=== PATIENT | male | born 1940 | race Caucasian/White ===

== ENCOUNTER 2019-07-24 09:18 | Emergency (ER) | payer MEDICARE, OTHER ==
[~2019-07-24] VITALS: Ht 170.1 cm; Wt 97.2 kg
--- NOTE | 2019-07-24 09:48 | ED General ---
General Chief Complaint: - Urinary Stated Complaint: HEMATURIA Nursing Triage Note: Pt arrived via POV and ambulatory to ED with c/o blood in urine which just started this morning. Pt denies pain or any other problem. Nursing Sepsis Screen: No Definite Risk Source of Information: Patient Exam Limitations: No Limitations History of Present Illness Date Seen by Provider: July 24, 2019 Time Seen by Provider: 09:38 Initial Comments Presents w onset of blood in his urine this morning. No previous Hx of similar episodes. Denies difficulty w urination. Denies back, flank or abdominal pain. Denies fever, chills or recent illness. Allergies and Home Medications Patient Home Medication List Home Medication List Reviewed: Yes Review of Systems Review of Systems Constitutional: see HPI; No chills, No fever, No malaise Respiratory: No cough, No short of breath Cardiovascular: No chest pain, No palpitations Gastrointestinal: No abdominal pain, No loss of appetite, No nausea, No vomiting Genitourinary: see HPI; No decreased output, No dysuria, No frequency; hematuria; No hesitancy, No incontinence; nocturia; No pain Musculoskeletal: No back pain, No neck pain Past Aoktesh-Ajvgdz-Pvnjsb Hx Past Med/Social Hx: Reviewed Nursing Past Med/Soc Hx Patient Social History Alcohol Use: Denies Use Recreational Drug Use: No Smoking Status: Former Smoker Type Used: Cigarettes 2nd Hand Smoke Exposure: No Recent Foreign Travel: No Contact w/Someone Who Travel: No Recent Infectious Disease Expo: No Recent Hopitalizations: No Physical Abuse: No Sexual Abuse: No Mistreated: No Fear: No Seasonal Allergies Seasonal Allergies: No Past Medical History Surgeries: Yes (PACEMAKER, LEFT LEG) Respiratory: No Cardiac: Yes Hypertension Neurological: No Genitourinary: No Gastrointestinal: No Musculoskeletal: Yes Gout Endocrine: No HEENT: No Cancer: No Psychosocial: No Blood Disorders: No Physical Exam Vital Signs Vital Signs - First Documented 07/24/19 09:27 Temp 36.1 Pulse 72 Resp 18 B/P (MAP) 151/100 (117) Pulse Ox 97 Capillary Refill : Less Than 3 Seconds Height, Weight, BMI Height: '" Weight: lbs. oz. kg; 33.00 BMI Method: General Appearance: No Apparent Distress, WD/WN Respiratory: Chest Non Tender, Lungs Clear Cardiovascular: Regular Rate, Rhythm, No Edema Gastrointestinal: Non Tender, Soft; No Distended, No Guarding, No Mass Back: No CVA Tenderness, No Vertebral Tenderness Progress/Results/Core Measures Suspected Sepsis Recent Fever Within 48 Hours: No Infection Criteria Present: None New/Unexplained Altered Menta: No Sepsis Screen: No Definite Risk SIRS Temperature: Pulse: 72 Respiratory Rate: 18 Blood Pressure 151 /100 Mean: 117 Results/Orders Lab Results Laboratory Tests Test 07/24/19 09:30 Range/Units Urine Color RED H Urine Clarity CLOUDY H Urine pH 5.5 5-9 Urine Specific [place] 1.025 H 1.016-1.022 Urine Protein 3+ H NEGATIVE Urine Glucose (UA) 3+ H NEGATIVE Urine Ketones NEGATIVE NEGATIVE Urine Nitrite NEGATIVE NEGATIVE Urine Bilirubin NEGATIVE NEGATIVE Urine Urobilinogen 0.2 < = 1.0 MG/DL Urine Leukocyte Esterase 1+ H NEGATIVE Urine RBC (Auto) 3+ H NEGATIVE Urine RBC TNTC H /HPF Urine WBC 50-100 H /HPF Urine Squamous Epithelial Cells RARE /HPF Urine Crystals NONE /LPF Urine Bacteria TRACE /HPF Urine Casts NONE /LPF Urine Mucus NEGATIVE /LPF Urine Culture Indicated YES My Orders Orders - MARY GUILLEN DO Urinalysis (07/24/19 09:22) Urine Culture (07/24/19 09:30) Vital Signs/I&O 07/24/19 09:27 Temp 36.1 Pulse 72 Resp 18 B/P (MAP) 151/100 (117) Pulse Ox 97 Capillary Refill : Less Than 3 Seconds Blood Pressure Mean: 117 Departure Impression Primary Impression: Urinary tract infection Qualified Codes: N30.01 - Acute cystitis with hematuria Disposition: HOME, SELF-CARE Condition: Stable Departure-Patient Inst. Decision time for Depature: 09:47 Referrals: MARYLU ALTAMIRANO MD (PCP/Family) Primary Care Physician Patient Instructions: Urinary Tract Infection, Adult (DC) Scripts Ciprofloxacin HCl (Ciprofloxacin HCl) 500 Mg Tablet 500 MG PO BID, #14 TAB Prov: MARY GUILLEN DO 07/24/19 MARY GUILLEN DO July 24, 2019 09:48
[2019-07-24 09:53] LABS: BILIRUBIN,URINE NEGATIVE (NEGATIVE); CLARITY,URINE CLOUDY; COLOR,URINE RED; GLUCOSE, URINE (UA) 3+ (NEGATIVE); KETONES,URINE NEGATIVE (NEGATIVE); LEUKOCYTE ESTERASE ,URINE 1+ (NEGATIVE); NITRITE,URINE NEGATIVE (NEGATIVE); PH,URINE 5.5 (5-9); PROTEIN,URINE 3+ (NEGATIVE); RBC,URINE TNTC /HPF; WBC,URINE 50-100 /HPF
[2019-07-24 09:54] LABS: BACTERIA,URINE TRACE /HPF; SQUAMOUS EPITHELIAL CELL,UR RARE /HPF
[2019-07-24] MEDS ORDERED: CIPR500T4 PO (09:59)
[2019-07-24 10:03] VITALS: BP 151/100
--- OUTSIDE RECORDS SUMMARY | 2019-07-24 10:06 | XMS REPORT | Continuity of Care Document ---
Author Organization Unknown Address Unknown Phone Unavailable Allergies There is no data. Medications There is no data. Problems There is no data. Procedures There is no data. Results Test Result Range LIPID PANEL - 08/18/18 08:22 CHOLESTEROL, TOTAL 185 mg/dL <200 HDL CHOLESTEROL 49 mg/dL >40 TRIGLYCERIDES 241 mg/dL <150 LDL-CHOLESTEROL 99 mg/dL (calc) NRG CHOL/HDLC RATIO 3.8 (calc) <5.0 NON HDL CHOLESTEROL 136 mg/dL (calc) <13 0 CMP - 08/18/18 08:22 GLUCOSE 143 mg/dL 65-99 UREA NITROGEN (BUN) 40 mg/dL 7-25 CREATININE 1.50 mg/dL 0.70-1.11 eGFR NON-AFR. FAROESE 43 mL/min/1.73m2 > OR = 60 eGFR 50 mL/min/1.73m2 > OR = 60 BUN/CREATININE RATIO 27 (calc) 6-22 SODIUM 139 mmol/L 135-146 POTASSIUM 4.6 mmol/L 3.5-5.3 CHLORIDE 111 mmol/L 98-110 CARBON DIOXIDE 18 mmol/L 20-32 CALCIUM 10.0 mg/dL 8.6-10.3 PROTEIN, TOTAL 7.0 g/dL 6.1-8.1 ALBUMIN 4.3 g/dL 3.6-5.1 GLOBULIN 2.7 g/dL (calc) 1.9-3.7 ALBUMIN/GLOBULIN RATIO 1.6 (calc) 1.0-2. 5 BILIRUBIN, TOTAL 0.4 mg/dL 0.2-1.2 ALKALINE PHOSPHATASE 69 U/L 40-115 AST 14 U/L 10-35 ALT 15 U/L 9-46 CBC - 08/18/18 08:22 WHITE BLOOD CELL COUNT 9.1 Thousand/uL 3 .8-10.8 RED BLOOD CELL COUNT 5.40 Million/uL 4.2 0-5.80 HEMOGLOBIN 15.9 g/dL 13.2-17.1 HEMATOCRIT 47.3 % 38.5-50.0 MCV 87.6 fL 80.0-100.0 MCH 29.4 pg 27.0-33.0 MCHC 33.6 g/dL 32.0-36.0 RDW 13.5 % 11.0-15.0 PLATELET COUNT 297 Thousand/uL 140-400 MPV 9.6 fL 7.5-12.5 ABSOLUTE NEUTROPHILS 5915 cells/uL 1500- 7800 ABSOLUTE LYMPHOCYTES 1856 cells/uL 850-3 900 ABSOLUTE MONOCYTES 810 cells/uL 200-950 ABSOLUTE EOSINOPHILS 446 cells/uL 15-500 ABSOLUTE BASOPHILS 73 cells/uL 0-200 NEUTROPHILS 65 % NRG LYMPHOCYTES 20.4 % NRG MONOCYTES 8.9 % NRG EOSINOPHILS 4.9 % NRG BASOPHILS 0.8 % NRG A1C - 08/18/18 08:22 HEMOGLOBIN A1c 7.8 % of total Hgb <5.7 LIPID PANEL - 12/19/18 09:06 CHOLESTEROL, TOTAL 172 mg/dL <200 HDL CHOLESTEROL 49 mg/dL >40 TRIGLYCERIDES 242 mg/dL <150 LDL-CHOLESTEROL 89 mg/dL (calc) NRG CHOL/HDLC RATIO 3.5 (calc) <5.0 NON HDL CHOLESTEROL 123 mg/dL (calc) <13 0 CMP - 12/19/18 09:06 GLUCOSE 144 mg/dL 65-99 UREA NITROGEN (BUN) 39 mg/dL 7-25 CREATININE 1.61 mg/dL 0.70-1.11 eGFR NON-AFR. FAROESE 40 mL/min/1.73m2 > OR = 60 eGFR 46 mL/min/1.73m2 > OR = 60 BUN/CREATININE RATIO 24 (calc) 6-22 SODIUM 139 mmol/L 135-146 POTASSIUM 4.5 mmol/L 3.5-5.3 CHLORIDE 107 mmol/L 98-110 CARBON DIOXIDE 21 mmol/L 20-32 CALCIUM 9.7 mg/dL 8.6-10.3 PROTEIN, TOTAL 6.7 g/dL 6.1-8.1 ALBUMIN 4.1 g/dL 3.6-5.1 GLOBULIN 2.6 g/dL (calc) 1.9-3.7 ALBUMIN/GLOBULIN RATIO 1.6 (calc) 1.0-2. 5 BILIRUBIN, TOTAL 0.5 mg/dL 0.2-1.2 ALKALINE PHOSPHATASE 77 U/L 40-115 AST 13 U/L 10-35 ALT 16 U/L 9-46 CBC - 12/19/18 09:06 WHITE BLOOD CELL COUNT 10.8 Thousand/uL 3.8-10.8 RED BLOOD CELL COUNT 5.27 Million/uL 4.2 0-5.80 HEMOGLOBIN 15.6 g/dL 13.2-17.1 HEMATOCRIT 46.9 % 38.5-50.0 MCV 89.0 fL 80.0-100.0 MCH 29.6 pg 27.0-33.0 MCHC 33.3 g/dL 32.0-36.0 RDW 13.7 % 11.0-15.0 PLATELET COUNT 310 Thousand/uL 140-400 MPV 9.3 fL 7.5-12.5 ABSOLUTE NEUTROPHILS 6977 cells/uL 1500- 7800 ABSOLUTE LYMPHOCYTES 2128 cells/uL 850-3 900 ABSOLUTE MONOCYTES 1210 cells/uL 200-950 ABSOLUTE EOSINOPHILS 410 cells/uL 15-500 ABSOLUTE BASOPHILS 76 cells/uL 0-200 NEUTROPHILS 64.6 % NRG LYMPHOCYTES 19.7 % NRG MONOCYTES 11.2 % NRG EOSINOPHILS 3.8 % NRG BASOPHILS 0.7 % NRG A1C - 12/19/18 09:06 HEMOGLOBIN A1c 7.6 % of total Hgb <5.7 MICROALBUMIN/CREATININE RATIO, URINE - 0 04/21/19 09:08 CREATININE, RANDOM URINE 92 mg/dL 20-32 0 MICROALBUMIN 63.8 mg/dL See Note: MICROALBUMIN/CREATININE RATIO, RANDOM URINE 693 mcg/mg creat <30 Complete urinalysis with reflex to cultu re - 07/24/19 09:30 Urine color determination RED NRG Urine clarity determination CLOUDY NR G Urine pH measurement by test strip 5.5 5-9 Specific gravity of urine by test strip 1.025 1.016-1.022 Urine protein assay by test strip, semi-quantitative 3+ NEGATIVE Urine glucose detection by automated test strip 3+ NEGATIVE Erythrocytes detection in urine sediment by light micr oscopy 3+ NEGATIVE Urine ketones detection by automated test strip NE GATIVE NEGATIVE Urine nitrite detection by test strip NEGATIVE NEGATIVE Urine total bilirubin detection by test strip NEGA TIVE NEGATIVE Urine urobilinogen measurement by automated test strip (mass/volume) 0.2 mg/dL < = 1.0 Urine leukocyte esterase detection by dipstick 1+ NEGATIVE Automated urine sediment erythrocyte cou nt by microscopy (number/high power field) TNTC NRG Automated urine sediment leukocyte count by microscopy (number/high power field) [HPF] NRG Bacteria detection in urine sediment by light microsco py TRACE NRG Squamous epithelial cells detection in u rine sediment by light microscopy RARE NRG Crystals detection in urine sediment by light microsco py NONE NRG Casts detection in urine sediment by light microscopy NONE NRG Mucus detection in urine sediment by light microscopy NEGATIVE NRG Complete urinalysis with reflex to culture YES NRG Encounters ACCT No. Visit Date/Time Discharge Status Pt. Type Provider Facility Loc./Unit Complaint [id number] 04/21/2019 07:45:00 04/21/2019 23:59: 59 [facility] Outpatient MARYLU ALTAMIRANO [facility] [id number] 04/21/2019 07:45:00 Document Registration [id number] 12/19/2018 08:00:00 Document Registration [id number] 08/18/2018 08:00:00 Document Registration [id number] 07/24/2019 09:54:00 Document Registration
== END 2019-07-24 10:03 | disposition home or self-care (01) ==
LOC: ER FS 09:21
DX: N39.0 Urinary tract infection, site not specified (principal); Z87.891 Personal history of nicotine dependence; Z95.0 Presence of cardiac pacemaker
CPT/HCPCS: 81000; 87077; 87088; 87186; 99282

== ENCOUNTER 2019-07-25 14:35 | Emergency (ER) | payer MEDICARE ==
[~2019-07-25] VITALS: Ht 170 cm; Wt 96.9 kg
[~2019-07-25 14:35] MED LIST: CIPR500T4 PO
--- NOTE | 2019-07-25 14:59 | ED GI ---
General Chief Complaint: Rect Problems Stated Complaint: BLOODY STOOL Nursing Triage Note: States he was here in ED yesterday due to blood in urine and was put on an antibiotic. Is here today because he had a small amount of blood in stool. States it was a red streak on stool and when he wiped. Denies shortness of breath, dizziness, or syncope. States he had a GI bleed 8 years ago and had a colonoscopy. Sepsis Screen: No Definite Risk Source of Information: Patient, Old Records, RN/MD, RN Notes Reviewed Exam Limitations: No Limitations History of Present Illness Date Seen by Provider: July 25, 2019 Time Seen by Provider: 14:45 Initial Comments This patient is an 79-year-old male presents to the emergency department with complaint of what he believes was bright red blood when having a bowel movement. Patient states it was just a drop or 2. Patient states that he thought he was constipated and was pushing pretty hard and got very little stool out the nose blood. Patient was seen in the emergency department yesterday with complaint of blood in his urine. Patient states that blood is resolved patient is started on ciprofloxacin yesterday by ER physician. Patient does not take any blood thinners. Patient believes disease had a GI bleed in the past chronically 8 years ago but a negative colonoscopy. Patient does have a large prostate and takes medication for the same. Patient appears to be stable no acute distress blood pressure and vital signs are stable. We'll do medical evaluation treatment is needed Timing/Duration: 1/2 Hour Severity/Quality: Mild Activities at Onset: None Modifying Factors: Worsens With Defecating Allergies and Home Medications Allergies Coded Allergies: No Known Drug Allergies (Unverified , 07/25/19) Home Medications Ciprofloxacin HCl 500 Mg Tablet, 500 MG PO BID Prescribed by: MARY GUILLEN on 07/24/19 [id number] Patient Home Medication List Home Medication List Reviewed: Yes Review of Systems Review of Systems Constitutional: No no symptoms reported; see HPI; No chills, No diaphoresis, No dizziness, No fever, No malaise, No weakness, No weight gain, No weight loss, No other EENTM: No No Symptoms Reported, No See HPI, No Blurred Vision, No Double Vision, No Eye Pain, No Eye Tearing, No Ear Drainage, No Ear Pain, No Mouth Pain, No Mouth Swelling, No Nose Congestion, No Nose Pain, No Throat Pain, No Throat Swelling, No Other Respiratory: Denies No Symptoms Reported, Denies See HPI, Denies Cough, Denies Orthopnea, Denies Shortness of Air, Denies SOA With Exertion, Denies SOA at R est, Denies Stridor, Denies Wheezing, Denies Other Cardiovascular: Denies No Symptoms Reported, Denies See HPI, Denies Chest Pain, Denies Edema, Denies Irregular Heart Rate, Denies Lightheadedness, Denies Palpitations, Denies Syncope, Denies Other Gastrointestinal: Denies No Symptoms Reported, Denies See HPI, Denies Abdomen Distended, Denies Abdominal Pain, Denies Blood Streaked Stools, Denies Constipated, Denies Diarrhea, Denies Difficulty Swallowing, Denies Nausea, Denies Poor Appetite, Denies Poor Fluid Intake, Denies Rectal Bleeding, Denies Vomiting, Denies Other Genitourinary: Denies No Symptoms Reported, Denies See HPI, Denies Burning, Denies Discharge, Denies Drainage, Denies Frequency, Denies Flank Pain, Denies Hematuria, Denies Incontinence, Denies Pain, Denies Urgency, Denies Other Musculoskeletal: No no symptoms reported, No see HPI, No back pain, No gout, No joint pain, No joint swelling, No muscle pain, No muscle stiffness, No muscle cramps, No muscle twitching, No muscle weakness, No neck pain, No other Skin: No no symptoms reported, No see HPI, No change in color, No change in hair/nails, No dryness, No hx of skin cancer, No lesions, No lumps, No pruritus, No rash, No other Psychiatric/Neurological: Denies No Symptoms Reported, Denies See HPI, Denies Anxiety, Denies Depressed, Denies Emotional Problems, Denies Headache, Denies Numbness, Denies Paresthesia, Denies Pre-Existing Deficit, Denies Seizure, Denies Tingling, Denies Tremors, Denies Weakness, Denies Other Endocrine: Denies No Symptoms Reported, Denies See HPI, Denies Excessive Sweating, Denies Flushing, Denies Intolerance to Cold, Denies Intolerance to Heat, Denies Increased Hunger, Denies Increased Thrist, Denies Increased Urine, Denies Unexplained Weight Gain, Denies Unexplaned Weight Loss, Denies Other All Other Systems Reviewed Negative Unless Noted: Yes Past Dnsopkm-Ukttmn-Lutbgc Hx Patient Social History Type Used: Cigarettes 2nd Hand Smoke Exposure: No Recent Foreign Travel: No Contact w/Someone Who Travel: No Recent Infectious Disease Expo: No Recent Hopitalizations: No Seasonal Allergies Seasonal Allergies: No Past Medical History Surgeries: Yes (PACEMAKER, LEFT LEG) Respiratory: No Cardiac: Yes Hypertension Neurological: No Genitourinary: No Gastrointestinal: No Musculoskeletal: Yes Gout Endocrine: No HEENT: No Cancer: No Psychosocial: No Blood Disorders: No Physical Exam Vital Signs Vital Signs - First Documented 07/25/19 14:43 Temp 36.8 Pulse 90 Resp 16 B/P (MAP) 124/82 (96) Pulse Ox 95 Capillary Refill : Less Than 3 Seconds Height/Weight/BMI Height: '" Weight: lbs. oz. kg; 33.00 BMI Method: General Appearance: WD/WN, no apparent distress HEENT: PERRL/EOMI, normal ENT inspection, TMs normal, pharynx normal Neck: non-tender, full range of motion, supple, normal inspection Respiratory: chest non-tender, lungs clear, normal breath sounds, no respiratory distress, no accessory muscle use Cardiovascular: normal peripheral pulses, regular rate, rhythm, no edema, no gallop, no JVD, no murmur Gastrointestinal: normal bowel sounds, non tender, soft, no organomegaly, no pulsatile mass Rectal: normal exam, normal rectal tone, hemorrhoids, other (enlarged firm prostate) Genital/Rectal: normal rectal exam Progress/Results/Core Measures Results/Orders Lab Results Laboratory Tests Test 07/25/19 14:58 07/25/19 16:37 Range/Units White Blood Count 9.5 4.3-11.0 10^3/uL Red Blood Count 5.01 4.35-5.85 10^6/uL Hemoglobin 15.1 13.3-17.7 G/DL Hematocrit 43 40-54 % Mean Corpuscular Volume 85 80-99 FL Mean Corpuscular Hemoglobin 30 25-34 PG Mean Corpuscular Hemoglobin Concent 36 32-36 G/DL Red Cell Distribution Width 13.3 10.0-14.5 % Platelet Count 276 130-400 10^3/uL Mean Platelet Volume 9.6 7.4-10.4 FL Neutrophils (%) (Auto) 70 42-75 % Lymphocytes (%) (Auto) 13 12-44 % Monocytes (%) (Auto) 13 H 0-12 % Eosinophils (%) (Auto) 2 0-10 % Basophils (%) (Auto) 1 0-10 % Neutrophils # (Auto) 6.7 1.8-7.8 X 10^3 Lymphocytes # (Auto) 1.3 1.0-4.0 X 10^3 Monocytes # (Auto) 1.3 H 0.0-1.0 X 10^3 Eosinophils # (Auto) 0.2 0.0-0.3 10^3/uL Basophils # (Auto) 0.1 0.0-0.1 10^3/uL Prothrombin Time 13.3 12.2-14.7 SEC INR Comment 1.0 0.8-1.4 Sodium Level 130 L 135-145 MMOL/L Potassium Level 4.7 3.6-5.0 MMOL/L Chloride Level 95 L 98-107 MMOL/L Carbon Dioxide Level 19 L 21-32 MMOL/L Anion Gap 16 H 5-14 MMOL/L Blood Urea Nitrogen 40 H 7-18 MG/DL Creatinine 1.96 H 0.60-1.30 MG/DL Estimat Glomerular Filtration Rate 33 BUN/Creatinine Ratio 20 Glucose Level 415 *H 70-105 MG/DL Calcium Level 9.2 8.5-10.1 MG/DL Corrected Calcium 9.4 8.5-10.1 MG/DL Total Bilirubin 0.3 0.1-1.0 MG/DL Aspartate Amino Transf (AST/SGOT) 16 5-34 U/L Alanine Aminotransferase (ALT/SGPT) 18 0-55 U/L Alkaline Phosphatase 91 40-136 U/L Total Protein 6.7 6.4-8.2 GM/DL Albumin 3.8 3.2-4.5 GM/DL Glucometer 324 H 70-110 MG/DL My Orders Orders - MARII GORDON MD Comprehensive Metabolic Panel (07/25/19 14:53) Cbc With Automated Diff (07/25/19 14:53) Occult Blood Stool (07/25/19 14:53) Protime With Inr (07/25/19 14:53) Ns Iv 500 Ml (Sodium Chloride 0.9%) (07/25/19 15:36) Insulin (Regular) Human (Humulin R (Per (07/25/19 15:45) Medications Given in ED Current Medications Medications Dose Ordered Sig/[place] Route Start Time Stop Time Status Last Admin Dose Admin Insulin Human Regular 4 unit ONCE ONCE SC 07/25/19 15:45 07/25/19 15:46 DC 07/25/19 15:45 4 UNIT Vital Signs/I&O 07/25/19 14:43 Temp 36.8 Pulse 90 Resp 16 B/P (MAP) 124/82 (96) Pulse Ox 95 Blood Pressure Mean: 96 Progress Progress Note : Time: 16:49 Progress Note Negative evaluation for any acute GI bleeding. Patient appears to have questionable anal fissure to the rectal area on exam. Very trace positive blood on guaiac "blood evaluation. But no gross blood. Patient also had hemorrhoid. Patient states he was having a hard time having a stool this morning. Patient also has hyperglycemia and has long history of diabetes and takes oral medications for same including Januvia. Patient was given little insulin the did bring his glucose down. He continues come down. I did discuss living with patient about further evaluation. Patient is instructed to follow up with his PCP in 2 days for further evaluation. Patient is to continue his antibiotics that he was written in the emergency department yesterday during his evaluation. Continue all home medications. Patient is use MiraLAX [id number] and stool. Have a high-fiber diet. Patient be discharged home. Patient states understanding Departure Impression Primary Impression: Hematochezia Additional Impressions: History of BPH Anal fissure Hemorrhoid Hyperglycemia Disposition: 01 HOME, SELF-CARE Condition: Stable Departure-Patient Inst. Decision time for Depature: 16:51 Referrals: MARYLU ALTAMIRANO MD (PCP/Family) Primary Care Physician Patient Instructions: Hemorrhoids (DC), Anal Fissure (DC), Diabetes and Diet, Blood Glucose Monitoring Add. Discharge Instructions: Encourage by mouth fluids. Stool softeners [id number] as instructed. Continue all home medications. Follow up with PCP in 2 days for further evalu ation treatment. All discharge instructions reviewed with patient and/or family. Voiced understanding. MARII GORDON MD July 25, 2019 14:59
--- OUTSIDE RECORDS SUMMARY | 2019-07-25 15:02 | XMS REPORT | Continuity of Care Document ---
[...] 7-25 CREATININE 1.50 mg/dL 0.70-1.11 eGFR NON-AFR. [place] 43 mL/min/1.73m2 > OR = 60 eGFR [...] 7-25 CREATININE 1.61 mg/dL 0.70-1.11 eGFR NON-AFR. [place] 40 mL/min/1.73m2 > OR = 60 eGFR [...] urinalysis with reflex to culture YES NRG Bacterial urine culture - 07/24/19 09:30 Bacterial urine culture [id number] NRG COLONY COUNT 50,000 CFU/ML NRG Encounters ACCT No. Visit Date/Time Discharge Status Pt. Type Provider Facility Loc./Unit Complaint [id number] 04/21/2019 07:45:00 04/21/2019 23:59: 59 [facility] Outpatient MARYLU ALTAMIRANO [facility] [id number] 04/21/2019 07:45:00 Document Registration [id number] 12/19/2018 08:00:00 Document Registration [id number] 08/18/2018 08:00:00 Document Registration [id number] 07/24/2019 09:21:00 020 10:03:00 DIS Emergency MRAY GUILLEN DO Via [facility] ER FS HEMATURIA
[2019-07-25 15:13] LABS: HEMATOCRIT 43 % (40-54); HEMOGLOBIN 15.1 G/DL (13.3-17.7); MEAN CORPUSCULAR HEMOGLOBIN 30 PG (25-34); MEAN CORPUSCULAR HGB CONC 36 G/DL (32-36); MEAN CORPUSCULAR VOLUME 85 FL (80-99); PLATELET COUNT 276 10^3/uL (130-400); RED CELL DISTRIBUTION WIDTH 13.3 % (10.0-14.5); WHITE BLOOD COUNT 9.5 10^3/uL (4.3-11.0)
[2019-07-25 15:14] LABS: BASOPHILS # (AUTO) 0.1 10^3/uL (0.0-0.1); BASOPHILS % (AUTO) 1 % (0-10); EOSINOPHILS # (AUTO) 0.2 10^3/uL (0.0-0.3); EOSINOPHILS % (AUTO) 2 % (0-10); LYMPHOCYTES # (AUTO) 1.3 X 10^3 (1.0-4.0); LYMPHOCYTES % (AUTO) 13 % (12-44); MEAN PLATELET VOLUME 9.6 FL (7.4-10.4); MONOCYTES # (AUTO) 1.3 X 10^3 (0.0-1.0); MONOCYTES % (AUTO) 13 % (0-12); NEUTROPHILS # (AUTO) 6.7 X 10^3 (1.8-7.8); NEUTROPHILS % (AUTO) 70 % (42-75)
[2019-07-25 15:20] LABS: PROTHROMBIN TIME PATIENT 13.3 SEC (12.2-14.7)
[2019-07-25 15:28] LABS: POTASSIUM 4.7 MMOL/L (3.6-5.0)
[2019-07-25 15:29] LABS: CREATININE SERUM 1.96 MG/DL (0.60-1.30)
[2019-07-25 15:30] LABS: ALBUMIN 3.8 GM/DL (3.2-4.5); BILIRUBIN,TOTAL 0.3 MG/DL (0.1-1.0); CALCIUM 9.2 MG/DL (8.5-10.1); TOTAL PROTEIN 6.7 GM/DL (6.4-8.2)
[2019-07-25] MEDS ORDERED: NS IV 500 ML 500 ML IV STA (15:36)
[2019-07-25] MEDS ORDERED: inSUlin (REGULAR) HUMAN 1 UNIT/0.01 ML (CHARGE PER UNIT) SC ONE (15:45)
[2019-07-25 17:03] VITALS: BP 132/72
== END 2019-07-25 17:03 | disposition home or self-care (01) ==
LOC: EDUNIT# 14:35 → ER FS 14:37
DX: K60.2 Anal fissure, unspecified (principal); K64.9 Unspecified hemorrhoids; E11.65 Type 2 diabetes mellitus with hyperglycemia; Z95.0 Presence of cardiac pacemaker; Z79.84 Long term (current) use of oral hypoglycemic drugs; Z87.430 Personal history of prostatic dysplasia
CPT/HCPCS: 36415; 80053; 82274; 82962; 85025; 85610